=== PATIENT | male | born 2005 | race African-American/Black ===

== ENCOUNTER 2025-02-04 09:19 | Emergency (ER) | payer OTHER ==
[~2025-02-04] VITALS: Ht 177.8 cm; Wt 88.8 kg
[2025-02-04] MEDS: KETOROLAC 30 MG/ML 1 ML VIAL IV ONE (14:21)
[2025-02-04] MEDS: NS (Normal Saline) 0.9% 1,000 ML IV ONE (14:21)
[2025-02-04 14:40] LABS: BASO # 0.0 10^3/uL (0.0-0.2); BASO % 0.3 % (0.0-1.0); EOS # 0.1 10^3/uL (0.0-0.5); EOS % 0.8 % (0.0-3.0); LYMPH # 1.5 10^3/uL (1.5-5.0); LYMPH % 20.3 % (24.0-44.0); MONO # 0.7 10^3/uL (0.0-0.8); MONO % 9.6 % (2.0-8.0); NEUTROPHILS # 5.2 10^3/uL (1.5-8.5); NEUTROPHILS % 68.7 % (36.0-66.0); PLATELET COUNT, AUTOMATED 280 10^3/uL (150-450)
[2025-02-04] MEDS ORDERED: ISOVUE-370 76% 100 ML VIAL As Ordered ONE (14:43)
[2025-02-04] MEDS: CIPRODEX OTIC SUSP 7.5 ML AS STA (16:03)
[2025-02-04] MEDS: AUGMENTIN 875 MG TAB PO ONE (16:10)
[2025-02-04] MEDS ORDERED: CIPR7.5D2 AS (16:26)
[2025-02-04] MEDS ORDERED: NAPR-837 PO (16:26)
[2025-02-04] MEDS ORDERED: AMOX875T2 PO (16:26)
[2025-02-04 16:31] VITALS: BP 133/71; TEMP 98.7; O2SAT 100
== END 2025-02-04 16:47 | disposition home or self-care (01) ==
LOC: M ED 09:19
DX: H60.532 Acute contact otitis externa, left ear (principal); F17.210 Nicotine dependence, cigarettes, uncomplicated; Z79.2 Long term (current) use of antibiotics; Z79.899 Other long term (current) drug therapy
CPT/HCPCS: 70487; 80047; 83605; 85025; 85652; 86140; 96361; 96374; 99284; J1885; Q9967